=== PATIENT | female | born 1985 | race Caucasian/White ===

== ENCOUNTER 2020-09-20 18:31 | Emergency (ER) | payer OTHER ==
[~2020-09-20] VITALS: Ht 156.2 cm; Wt 72.0 kg
[2020-09-20] MEDS ORDERED: KETOROLAC 30 MG/ML 1ML VIAL IV ONE (19:15)
[2020-09-20] MEDS ORDERED: ONDANSETRON 4MG/2ML VIAL IV ONE (19:15)
[2020-09-20] MEDS ORDERED: NS 1,000 ML IV ONE (19:15)
[2020-09-20 19:40] LABS: BASO % 0.3 % (0.0-1.0); EOS # 0.1 10^3/uL (0.0-0.5); EOS % 0.8 % (0.0-3.0); HEMATOCRIT 34.8 % (36.0-47.0); HEMOGLOBIN 11.1 g/dl (12.0-15.5); LYMPH # 1.5 10^3/uL (1.5-5.0); LYMPH % 19.3 % (24.0-44.0); MEAN CORPUSCULAR HEMOGLOBIN 29.5 pg (27.0-33.0); MEAN CORPUSCULAR HGB CONC 31.9 g/dl (32.0-36.5); MEAN CORPUSCULAR VOLUME 92.6 fl (80.0-96.0); MONO # 0.4 10^3/uL (0.0-0.8); MONO % 5.4 % (0.0-5.0); NEUTROPHILS # 5.9 10^3/uL (1.5-8.5); NEUTROPHILS % 73.8 % (36.0-66.0); PLATELET COUNT, AUTOMATED 335 10^3/uL (150-450); RED BLOOD COUNT 3.76 10^6/uL (4.00-5.40)
[2020-09-20 20:11] LABS: ALBUMIN 2.6 GM/DL (3.2-5.2); ALT/SGPT 11 U/L (12-78); BILIRUBIN,DIRECT 0.2 MG/DL (0.0-0.2); BILIRUBIN,TOTAL 0.3 MG/DL (0.2-1.0); BLOOD UREA NITROGEN 11 MG/DL (7-18); CALCIUM LEVEL 8.4 MG/DL (8.5-10.1); CARBON DIOXIDE LEVEL 26 MEQ/L (21-32); CHLORIDE LEVEL 108 MEQ/L (98-107); CREATININE FOR GFR 0.48 MG/DL (0.55-1.30); GLOMERULAR FILTRATION RATE > 60.0 (>60); GLUCOSE, FASTING 78 MG/DL (70-100); LIPASE 66 U/L (73-393); POTASSIUM SERUM 3.6 MEQ/L (3.5-5.1); SODIUM LEVEL 141 MEQ/L (136-145); TOTAL PROTEIN 5.8 GM/DL (6.4-8.2)
--- NOTE | 2020-09-20 21:35 | REPVR ---
PROCEDURE INFORMATION: Exam: US Abdomen, Limited; Right Upper Quadrant Exam date and time: 09/20/2020 9:10 PM Age: 35 years old Clinical indication: Abdominal pain; Acute; Additional info: Upper abd pain R/O cholecystitis TECHNIQUE: Imaging protocol: US abdomen. Real time ultrasound with image documentation. Limited exam focused on the right upper quadrant. COMPARISON: No relevant prior studies available. FINDINGS: Liver: Mild increase in echotexture of the liver. Gallbladder: Stones and sludge noted within the fundus of the gallbladder. Common bile duct: Common bile duct measures 0.35-0.37 centimetres. Pancreas: Obscured by bowel gas. Right kidney: Right kidney measures at least 10.7 x 4.5 x 5.3 cm. No hydronephrosis in the visualized portion of the right kidney. Lower pole the right kidney not entirely seen due to bowel gas. IMPRESSION: Gallstones. 2. Mild increase in liver echotexture suggests underlying infiltrative process such as fatty infiltration. This could also be related to technical factors. Electronically signed by: Katrin Kramer On 09/20/2020 21:35:54 PM
[2020-09-20] MEDS ORDERED: MORPHINE 4 MG/ML 1ML VIAL/SYRINGE (J2270) IV ONE (22:00)
[2020-09-20] MEDS ORDERED: ACET1TAB16 PO ×2 (23:09→23:19)
[2020-09-20] MEDS ORDERED: NORCO 5/325MG TABLET (BULK FOR ED) PO ONE (23:15)
[2020-09-20 23:40] VITALS: BP 131/74
== END 2020-09-20 23:45 | disposition home or self-care (01) ==
LOC: MERGE 18:31 → M ED 18:31
DX: O99.63 Diseases of the digestive system complicating the puerperium (principal); K80.70 Calculus of gallbladder and bile duct without cholecystitis without obstruction; R11.2 Nausea with vomiting, unspecified; O99.845 Bariatric surgery status complicating the puerperium
CPT/HCPCS: 76705; 80048; 80076; 81001; 83690; 85025; 87086; 96374; 96375; 99284; J1885; J2270; J2405